=== PATIENT | male | born 1975 | race African-American/Black ===

== ENCOUNTER 2020-03-29 01:27 | Inpatient (IN) | payer SELFPAY ==
[2020-03-29 02:34] LABS: Troponin I 0.012 ng/mL (< 0.028)
[2020-03-29 03:12] VITALS: BMI 29.2
[2020-03-29] MEDS ORDERED: cloNIDine 0.1 MG TAB PO PRN (05:02)
[2020-03-29] MEDS ORDERED: Senokot S 8.6-50 MG TAB PO PRN (05:04)
[2020-03-29] MEDS ORDERED: Calcium Carbonate 500 MG ChewTAB PO PRN (05:04)
[2020-03-29] MEDS ORDERED: Ondansetron ODT 4 MG TAB PO PRN (05:04)
[2020-03-29] MEDS ORDERED: Ondansetron PF 4 MG/2 ML Vial IVP PRN (05:04)
--- NOTE | 2020-03-29 05:12 | HP ---
PRIMARY CARE PHYSICIAN: Ct Hanks MD CHIEF COMPLAINT: Right hip pain. HISTORY OF PRESENT ILLNESS: The patient is a 44-year-old male, who presented to [facility] with right hip pain. The patient had a mechanical fall and landed on his right hip. He presented to the emergency room with significant right hip pain that was moderate to severe in intensity, worse with movement. It was sharp. He was found to have pressured speech along with tangentiality, for which a drug screen was done that was consistent with cocaine and amphetamine. His alcohol level was 15. He was found to have KILLIAN with creatinine of 3.39 with BUN of 27 and CK of 1489. He was started on IV fluids and was transferred to this facility for hospital admission. PAST MEDICAL HISTORY: Epidermoid brain cyst, status post removal in 2013. PAST SURGICAL HISTORY: As discussed above. ALLERGIES: NO KNOWN DRUG ALLERGIES. SOCIAL HISTORY: The patient denies any alcohol or drug use. He is a former smoker. FAMILY HISTORY: Negative for heart disease. REVIEW OF SYSTEMS: Limited due to current mentation. PHYSICAL EXAMINATION: VITAL SIGNS: Temperature 98.3, pulse rate of 108, respirations 22, blood pressure 122/86, and O2 saturation 100% on room air. GENERAL: A 44-year-old male, in no apparent distress. He is intermittently confused. HEENT: Head, atraumatic and normocephalic. Sclerae anicteric. Dry mucous membranes. No oral lesion. NECK: Supple. No JVD. No carotid bruit. LUNGS: Clear to auscultation bilaterally. No wheezing, rales, or rhonchi. HEART: S1 and S2 present. Regular rate and rhythm. No rubs or gallops. ABDOMEN: Soft and nontender. Bowel sounds present. EXTREMITIES: No edema or calf tenderness. NEUROLOGIC: Grossly nonfocal. Moves all 4 extremities. Power was 5/5 in all extremities. PSYCHIATRIC: Alert, awake, and oriented x3 with intermittent confusion. MUSCULOSKELETAL: There is mild right hip pain on deep palpation. The pain is worse on movement. SKIN: Warm and dry. LYMPH NODES: No palpable lymph nodes in the neck. LABORATORY FINDINGS: CBC showed WBC 10.4 with hemoglobin 15.3, hematocrit 49.8, and platelets of 270. Chemistry showed sodium 147, potassium 4.2, chloride 107, bicarb 19, BUN 27, and creatinine 3.39. CK was 1489. Urinalysis showed 7 to 10 wbc's with 1+ bacteria. Urine drug screen as discussed above. IMAGING STUDIES: Hip x-ray by my review showed degenerative changes. IMPRESSION: 1. Toxic metabolic encephalopathy, multifactorial. 2. Acute kidney injury with metabolic acidosis and rhabdomyolysis. 3. Dehydration with hypernatremia. 4. Polysubstance abuse. 5. Alcohol intoxication. 6. History of epidermoid brain cyst, status post extraction in 2013. 7. Polysubstance abuse. PLAN: The patient will be monitored on the telemetry unit. We will continue IV hydration. The patient was extensively counseled on drug cessation. We will recheck labs in 24 hours. We will repeat CK in 24 hours. The patient understands the above plan of care. Job ID: [id number]
[2020-03-29 05:47] LABS: Troponin I 0.011 ng/mL (< 0.028)
[2020-03-29] MEDS: cloNIDine 0.1 MG TAB PO SCH ×3 (05:59→21:46)
[2020-03-29] MEDS: Sodium Chloride 0.9% 1,000 ML IV SCH ×4 (05:59→21:38)
[2020-03-29] MEDS: Famotidine 20 MG TAB PO SCH ×2 (08:21→21:44)
[2020-03-29] MEDS: Multivit, Therapeutic 1 TAB PO SCH (08:21)
[2020-03-29 08:41] LABS: Troponin I Less than 0.010 ng/mL (< 0.028)
[2020-03-29 09:21] LABS: Hemoglobin 14.4 g/dL (14.0-18.0); Mean Corpuscular HGB CONC 31.7 g/dL (32.0-36.0); Mean Corpuscular Hemoglobin 26.9 pg (27.0-31.0); Mean Corpuscular Volume 84.7 fL (78.0-98.0); Mean Platelet Volume 8.4 fL (7.4-10.4); Platelet Count 250 thou/uL (130-400); Red Blood Cell (RBC) Count 5.37 mill/uL (4.70-6.10); White Blood Cell (WBC) Count 9.7 thou/uL (4.8-10.8)
[2020-03-29 09:28] LABS: ALT (SGPT) 23 U/L (8-55); AST (SGOT) 45 U/L (5-34); Albumin 4.2 g/dL (3.5-5.0); Alkaline Phosphatase 56 U/L (40-110); Anion Gap 15 mmol/L (10-20); BUN (Urea Nitrogen) 25 mg/dL (8.9-20.6); Bilirubin, Total 0.5 mg/dL (0.2-1.2); CK (CPK) 2071 U/L (30-200); Calc. Creatinine Clearance 57 mL/min (70-130); Calcium 8.9 mg/dL (7.8-10.44); Carbon Dioxide 23 mmol/L (22-29); Chloride 108 mmol/L (98-107); Estimated GFR-MDRD 39; Globulin 2.8 g/dL (2.4-3.5); Glucose 108 mg/dL (70-105); Potassium 4.1 mmol/L (3.5-5.1); Sodium 142 mmol/L (136-145)
[2020-03-29] MEDS ORDERED: Lorazepam 0.5 MG TAB PO PRN (12:13)
--- NOTE | 2020-03-29 12:14 | PDOC.HOSPP ---
- Subjective Encounter Date: 03/29/20 Encounter Time: 09:30 Subjective: The patient is doing better. Muscle cramps have resolved. Patients arms and legs noted to be jerky in the bed, patient states he is always like that because he gets excited. Last cocaine and amphetamine use was yesterday. The patient later had acute anxiety attack, was hearing voices and saw things crawling on the wall. Patient states he was admitted at psychiatric facility in [place]. He states he was on a high dose of seroquel up to 200 mg but he didn't like how it made him feel so he stopped taking it. He also reports having a brain tumor removed four years ago and is supposed to get folllow up imaging but never did - Objective Vital Signs & Weight: Vital Signs (12 hours) Temp Pulse Resp BP BP Pulse Ox 03/29/20 11:01 98.1 F 98 16 115/86 94 L 03/29/20 07:04 98.4 F 98 22 H 120/95 H 99 03/29/20 03:01 98.3 F 130 H 18 111/68 95 Weight Weight 210 lb I&O: 03/28/20 03/29/20 03/30/20 06:59 06:59 06:59 Intake Total 480 Balance 480 Result Diagrams: 03/29/20 09:06 03/29/20 09:06 Hospitalist ROS - Review of Systems Constitutional: denies: fever, chills - Medication Medications: Active Medications Generic Name Dose Route Start Last Admin Trade Name Freq PRN Reason Stop Dose Admin Clonidine 0.1 mg 03/29/20 06:00 03/29/20 05:59 Catapres PO 0.1 mg Q8HR ONEIDA Administration Famotidine 20 mg 03/29/20 09:00 03/29/20 08:21 Pepcid PO 20 mg BID ONEIDA Administration Sodium Chloride 1,000 mls @ 150 mls/hr 03/29/20 05:15 03/29/20 05:59 Normal Saline 0.9% IV 1,000 mls .[id number] ONEIDA Administration Multivitamins 1 tab 03/29/20 09:00 03/29/20 08:21 Theragran PO 1 tab DAILY ONEIDA Administration Quetiapine Fumarate 12.5 mg 03/29/20 10:36 03/29/20 11:04 Seroquel PO 12.5 mg DAILYPRN PRN Administration Agitation - Exam General Appearance: NAD, awake alert Eye: PERRL, anicteric sclera ENT: normocephalic atraumatic, no oropharyngeal lesions Neck: supple, symmetric, no JVD, no thyromegaly Heart: RRR, no murmur, no gallops, no rubs Respiratory: CTAB, no wheezes, no rales, no ronchi Gastrointestinal: soft, non-tender, non-distended, normal bowel sounds Extremities: no cyanosis, no clubbing, no edema Skin: normal turgor, no lesions, no rashes Neurological: cranial nerve grossly intact, normal sensation to touch, no focal deficits, no new deficit Neurological - other findings: patient anxious and fidgety with legs. Maybe tardive dyskinesia legs? Musculoskeletal: normal tone, normal strength, no muscle wasting Psychiatric - other findings: anxious with hallucinations Hosp A/P - Plan This is 44 year old male who presented with rhabdomyolysis, acute kidney injury #Acute renal failure #Rhabdomyolysis - creatinine improved to 2.0, CK level still > 2000 - will continue with IV fluids - trop less than 3 #History of ANxiety #Unspecified psychiatric disorder - will order seroquel prn for hallucinations - ativan prn for anxiety - consider [facility] consult tomorrow History of brain tumor s/p removal - will repeat CT head Dispo: anticipate one more day DVT prophylaxis: patient is ambulatory Code status: full code
[2020-03-29] MEDS ORDERED: Lorazepam 0.5 MG TAB PO SCH (12:15)
--- NOTE | 2020-03-29 18:03 | CT ---
CT HEAD WITHOUT CONTRAST: 03/29/20 INDICATIONS: History of brain tumor. Comparison made to prior exams. MRI of brain 11/15/14 and 07/13/14. CT brain 07/12/14. Prior studies have revealed an epidermoid tumor in the posterior fossa. The MRI of 11/15 showed posto perative change with resection of the tumor with no evidence of residual tumor or recurrence. FINDINGS: Ventricles have normal size and position. Postoperative defect in the posterior fossa in the midline again noted. No mass effect identified. There is no evidence of hemorrhage or infarct. IMPRESSION: No acute process. Stable findings when compared to MRI of 11/15/14. POS: AGW
[2020-03-29] MEDS: Acetaminophen 325 MG TAB PO PRN (22:04)
[2020-03-30 05:00] LABS: Anion Gap 10 mmol/L (10-20); BUN (Urea Nitrogen) 15 mg/dL (8.9-20.6); CK (CPK) 1768 U/L (30-200); Calc. Creatinine Clearance 130 mL/min (70-130); Calcium 8.2 mg/dL (7.8-10.44); Carbon Dioxide 24 mmol/L (22-29); Chloride 113 mmol/L (98-107); Estimated GFR-MDRD Greater than 90; Glucose 118 mg/dL (70-105); Magnesium 2.2 mg/dL (1.6-2.6); Potassium 3.8 mmol/L (3.5-5.1); Sodium 143 mmol/L (136-145)
[2020-03-30 05:05] LABS: Band 1 % (5-11); Eosinophils 1 % (0-10); Hemoglobin 13.1 g/dL (14.0-18.0); Lymphocytes 48 % (21-51); MDiff Complete? YES; Mean Corpuscular HGB CONC 32.1 g/dL (32.0-36.0); Mean Corpuscular Hemoglobin 27.7 pg (27.0-31.0); Mean Corpuscular Volume 86.2 fL (78.0-98.0); Mean Platelet Volume 8.5 fL (7.4-10.4); Monocytes 6 % (0-10); Neutrophil 40 % (42-75); Platelet Count 197 thou/uL (130-400); Reactive Lymphocytes 4 % (0-10); Red Blood Cell (RBC) Count 4.74 mill/uL (4.70-6.10)
[2020-03-30] MEDS: Sodium Chloride 0.9% 1,000 ML IV SCH ×2 (05:05→13:30)
[2020-03-30] MEDS: cloNIDine 0.1 MG TAB PO SCH ×2 (05:09→13:30)
[2020-03-30] MEDS: Multivit, Therapeutic 1 TAB PO SCH (07:28)
[2020-03-30] MEDS: Famotidine 20 MG TAB PO SCH (07:28)
[2020-03-30 11:24] VITALS: BP 143/75; TEMP 98.4
[2020-03-30] MEDS: Acetaminophen 325 MG TAB PO PRN (11:26)
--- NOTE | 2020-03-30 15:38 | DIS ---
DATE OF ADMISSION: 03/29/2020 DATE OF DISCHARGE: 03/30/2020 DISCHARGE DIAGNOSES: 1. Acute renal failure. 2. Rhabdomyolysis. 3. History of anxiety. 4. Unspecified psychiatric disorder with hallucinations. 5. History of brain tumor, status post removal. 6. Cocaine abuse, methamphetamine abuse, amphetamine abuse. CONSULTATIONS: None. PROCEDURES: None. BRIEF HISTORY OF PRESENT ILLNESS: This is a 44-year-old male with a past medical history of unspecified psychiatric disorder, epidermoid brain cyst, status post removal, who had presented to the emergency room with right hip pain. The patient states that he had a fall and he landed on his right hip. His hip pain was moderate to severe in intensity, worse with movement. The patient was also noted to have pressured speech and had a drug screen that was positive for cocaine, methamphetamine, and amphetamine. His alcohol level is 15. He had an KILLIAN with a creatinine of 3.39. He was started on IV fluids and admitted for further workup. HOSPITAL COURSE: 1. Acute renal failure secondary to rhabdomyolysis from possible cocaine/methamphetamine/amphetamine use: The patient was hydrated with IV fluids and his creatinine improved to 0.99. The patient's CK level improved from 2069 to 1768. He reported adequate urine output. The patient was advised to stop using cocaine/methamphetamine and amphetamine and was seen by [facility] and referred for polysubstance abuse treatment on discharge. 2. Right hip pain: Hip x-ray on 03/29 showed severe right hip osteoarthritis. The patient states that he is in the process of getting hip surgery as an outpatient. He states this pain is chronic. He was able to lift up his right leg on the day of discharge. He is advised to drink excess amounts of water. 3. Anxiety/unspecified psychiatric disorder: The patient had an acute panic attack on 03/29, where he had some auditory hallucinations and seeing things crawling on the wall. He was given Seroquel with improvement in his hallucinations. He was seen by [facility] on the day of discharge. The patient denied any thoughts of hurting himself or others and denied any auditory or visual hallucinations. He was advised to follow up with [facility] as an outpatient and he was prescribed Seroquel as needed for hallucinations. 4. History of brain, tumor status post removal: The patient states that he is due for a repeat neuroimaging study for his brain tumor: He did have a repeat CT head, which showed stable findings. 5. Anemia: Hemoglobin was 13.1 on the day of discharge. This is likely secondary to his IV fluids. This should be repeated with his PCP as an outpatient. DISCHARGE PHYSICAL EXAMINATION: VITAL SIGNS: Temperature 98.4, heart rate 63, respiratory rate 16, O2 saturation 99% on room air, and blood pressure 143/75. GENERAL: The patient is alert, awake, and oriented x3. CVS: Regular rate and rhythm with no murmurs, rubs, or gallops. LUNGS: Clear to auscultation bilaterally. ABDOMEN: Positive bowel sounds. Soft, nontender, and nondistended. EXTREMITIES: The patient does have some mild right hip tenderness. He is able to lift up his right and left leg without difficulty. He is able to ambulate as well. He does not have any edema on his extremities. PERTINENT LABORATORY DATA: CBC on 03/30: Hemoglobin 13.1, hematocrit 40.9. Rest of CBC unremarkable. BMP on 03/30: Creatinine is 0.99, which is improved from 2.24 the day prior. CK level: 1768. Troponin I: Normal at 0.012, 0.011, 0.010. IMAGING DATA: Hip x-ray on 03/29: Severe right hip osteoarthritis. CT brain on 03/29: No acute process. Stable postop defect in the posterior fossa. DISCHARGE CONDITION: Stable. ACTIVITY: As tolerated. DIET: Regular diet. DISCHARGE MEDICATIONS: Seroquel 12.5 mg p.o. b.i.d. p.r.n. for hallucinations. DISCHARGE INSTRUCTIONS: The patient should follow up with his PCP in a week and consider following up with [facility] on discharge. Job ID: [id number] [facility]
== END 2020-03-30 15:15 | disposition home or self-care (01) | DRG 917 ==
LOC: ERS 01:27 → 2NO 01:53 → OBSVTOIN 01:53
PROVIDERS: ADMIT Internal Medicine; ATTEND Internal Medicine
DX: T40.5X1A Poisoning by cocaine, accidental (unintentional), initial encounter (principal); G92 Toxic encephalopathy; N17.9 Acute kidney failure, unspecified; E87.2 Acidosis; M62.82 Rhabdomyolysis; E87.0 Hyperosmolality and hypernatremia; R44.3 Hallucinations, unspecified; E86.0 Dehydration; F19.10 Other psychoactive substance abuse, uncomplicated; F10.129 Alcohol abuse with intoxication, unspecified; M16.11 Unilateral primary osteoarthritis, right hip; Y90.0 Blood alcohol level of less than 20 mg/100 ml; D64.9 Anemia, unspecified; F99 Mental disorder, not otherwise specified; Z71.51 Drug abuse counseling and surveillance of drug abuser
CPT/HCPCS: 36415; 70450; 80048; 80053; 82550; 83735; 84484; 85025; 85027; 99285

== ENCOUNTER 2020-06-30 05:29 | Outpatient (CLI) | payer OTHER ==
[2020-06-30 14:01] LABS: Hemoglobin 14.7 g/dL (14.0-18.0); Mean Corpuscular HGB CONC 32.6 g/dL (32.0-36.0); Mean Corpuscular Hemoglobin 28.2 pg (27.0-31.0); Mean Corpuscular Volume 86.5 fL (78.0-98.0); Mean Platelet Volume 8.9 fL (7.4-10.4); Platelet Count 202 thou/uL (130-400); RBC Distribution Width 13.6 % (11.5-14.5); Red Blood Cell (RBC) Count 5.21 mill/uL (4.70-6.10); White Blood Cell (WBC) Count 5.6 thou/uL (4.8-10.8)
[2020-06-30 14:10] LABS: Anion Gap 11 mmol/L (10-20); BUN (Urea Nitrogen) 11 mg/dL (8.9-20.6); Calc. Creatinine Clearance 0 mL/min (70-130); Calcium 9.2 mg/dL (7.8-10.44); Carbon Dioxide 29 mmol/L (22-29); Chloride 104 mmol/L (98-107); Estimated GFR-MDRD Greater than 90; Glucose 88 mg/dL (70-105); Potassium 4.3 mmol/L (3.5-5.1); Sodium 140 mmol/L (136-145)
[2020-06-30 14:18] LABS: Prothrombin Time 12.7 sec (12.0-14.7)
[2020-06-30 14:23] LABS: Bilirubin Negative (Negative); Blood, Urine Negative (Negative); Clarity Turbid (Clear); Glucose, Urine (Dipstick) Normal (Negative); Ketone, Urine Negative (Negative); Leukocyte Negative Leu/uL (Negative); Nitrite Negative (Negative); Protein, Urine (Dipstick) 10 mg/dL (Neg-Trace); RBC/HPF 0-3 HPF (0-3); Specific Gravity, Urine 1.027 (1.002-1.036); Squamous Epithelial 0-3 HPF (0-3); WBC/HPF 0-3 HPF (0-3); pH, Urine 7.5 (5.0-9.0)
[2020-06-30 14:26] LABS: Bacteria/HPF 1+ HPF (None Seen)
[2020-07-01 14:41] LABS: SARS-CoV-2 MS2 Positive; SARS-CoV-2 N Gene Negative; SARS-CoV-2 S Gene Negative; SARS-CoV-2 by NAA Not Detected (NotDetected); SARS-CoV-2 orf1ab Negative
== END 2020-06-30 05:30 | disposition home or self-care (01) ==
LOC: LABBT 05:29
PROVIDERS: ATTEND Orthopaedic Surgery
DX: Z01.812 Encounter for preprocedural laboratory examination (principal); Z11.59 Encounter for screening for other viral diseases; M87.051 Idiopathic aseptic necrosis of right femur
CPT/HCPCS: 80048; 81001; 85027; 85610; 87081; 87635; U0003

== ENCOUNTER 2020-06-30 12:00 | Inpatient (IN) | payer OTHER ==
[2020-06-29 14:23] VITALS: BMI 29.9
[2020-07-04] MEDS ORDERED: Tranexamic Acid 1,000 MG/10 ML VIAL ONE (06:03)
[2020-07-04] MEDS ORDERED: Sodium Chloride 0.9% 100 ML ONE (06:04)
[2020-07-04] MEDS ORDERED: Vancomycin 1.5 GRAM/300 ML BAG ONE (06:04)
[2020-07-04] MEDS ORDERED: Fentanyl 100 MCG/2 ML VIAL ONE ×5 (06:28→09:39)
[2020-07-04] MEDS ORDERED: Midazolam HCl 2 mg/2 ml Vial ONE (06:28)
[2020-07-04] MEDS ORDERED: traMADol HCl 50 MG TAB PO PRN ×3 (06:56→07:15)
[2020-07-04] MEDS ORDERED: diphenhydrAMINE 25 MG CAP PO PRN ×2 (06:56→07:15)
[2020-07-04] MEDS ORDERED: Promethazine HCl 25 MG/ML VIAL IM PRN ×3 (06:56→09:15)
[2020-07-04] MEDS ORDERED: HYDROcodone/Acetaminophen 10/325 mg Tablet PO PRN ×2 (06:56)
[2020-07-04] MEDS ORDERED: Zolpidem Tartrate 5 MG TAB PO PRN ×2 (06:56→07:15)
[2020-07-04] MEDS ORDERED: Ondansetron PF 4 MG/2 ML Vial IVP PRN ×2 (06:56→07:15)
[2020-07-04] MEDS ORDERED: Acetaminophen 325 MG TAB PO PRN (06:56)
[2020-07-04] MEDS ORDERED: Naloxone HCl 0.4 mg/ml Vial IVP PRN (07:15)
[2020-07-04] MEDS ORDERED: Promethazine HCl 25 MG SUPP PR PRN (07:15)
[2020-07-04] MEDS ORDERED: Hydrocerin (Eucerin) Cream 120 gm Jar TOP PRN (07:15)
[2020-07-04] MEDS ORDERED: diphenhydrAMINE 50 MG/ML VIAL IVP PRN (07:15)
[2020-07-04] MEDS ORDERED: diphenhydrAMINE 50 MG/ML VIAL IM PRN (07:15)
[2020-07-04] MEDS ORDERED: Naloxone HCl 0.4 mg/ml Vial IV PRN (07:15)
[2020-07-04] MEDS: Clindamycin/D5W 900 MG in Premix Bag 1 BAG IVPB SCH ×2 (07:30→12:32)
[2020-07-04] MEDS: Sodium Chloride 0.9% 1,000 ML IV SCH ×2 (08:38→17:15)
[2020-07-04] MEDS ORDERED: Bupivacaine/Epinephrine 0.25% 30 ML VIAL ONE (08:40)
[2020-07-04] MEDS ORDERED: Ondansetron HCl/PF 4 MG/2 ML Vial IVP PRN (09:15)
[2020-07-04] MEDS ORDERED: Promethazine HCl 25 MG/ML VIAL SLOW IVP PRN (09:15)
[2020-07-04] MEDS ORDERED: Naloxone HCl 0.4 mg/ml Vial ONE (10:11)
[2020-07-04] MEDS ORDERED: Ondansetron PF 4 MG/2 ML Vial ONE (10:11)
[2020-07-04] MEDS ORDERED: Glycopyrrolate 0.2 MG/ML 5 ML SYRINGE ONE (10:11)
[2020-07-04] MEDS ORDERED: Rocuronium Bromide 10 MG/ML (10ML VIAL) ONE (10:11)
[2020-07-04] MEDS ORDERED: PROPOFOL 200 MG/20 ML VIAL ONE (10:11)
[2020-07-04] MEDS ORDERED: Ketorolac Tromethamine 30 MG/ML VIAL ONE (10:11)
[2020-07-04] MEDS ORDERED: Dexamethasone 20 MG/5 ML VIAL ONE (10:11)
[2020-07-04] MEDS ORDERED: Lidocaine 1.5% w/Epi 1:200K 30 ML VIAL (Epid Use) ONE (10:12)
--- NOTE | 2020-07-04 11:16 | RAD ---
RIGHT HIP 2 VIEWS: Date: 07/04/2020 HISTORY: Recent postop total hip replacement. COMPARISON: Prior 03/29/2020 study. FINDINGS: Recent right total hip replacement without evidence for dislocation or periprosthetic fracture. IMPRESSION: Unremarkable recent total right hip replacement. POS: OFF
[2020-07-04] MEDS: Ferrous Gluconate 324 MG TAB PO SCH ×2 (11:39→20:55)
[2020-07-04] MEDS: Senokot S 8.6-50 MG TAB PO SCH ×2 (11:39→20:55)
[2020-07-04] MEDS: Aspirin 81 mg Enteric Coated Tablet PO SCH ×2 (11:39→20:55)
[2020-07-04] MEDS: Multivitamin W/ Minerals 1 TAB PO SCH (11:39)
--- NOTE | 2020-07-04 12:10 | OP ---
DATE OF PROCEDURE: 07/04/2020 PREOPERATIVE DIAGNOSIS: End-stage bicompartmental osteoarthritis, right hip. POSTOPERATIVE DIAGNOSIS: End-stage bicompartmental osteoarthritis, right hip. PROCEDURE PERFORMED: Press-fit right total hip arthroplasty. SUPERVISOR ESTIMATOR AND DRAFTER: Melvin Galan PA-C ANESTHESIA: General via endotracheal tube, augmented with indwelling epidural. COMPONENT USED: [facility] [employer] Trident II 52-mm press-fit acetabular shell with a 36-mm 10-degree polyethylene fixed bearing insert, Accolate II size 5 press-fit hip stem with a V40 ceramic 36-mm neutral neck length, standard offset femoral head. ESTIMATED BLOOD LOSS: 150. FINDINGS: End-stage severe degenerative bicompartmental disease, [id number] arthrosis, periarticular osteophyte formation, large serous effusion, hypertrophic synovium, and changes consistent with degenerative osteoarthritis and degenerative bicompartmental disease. DRAINS: None. SPECIMENS: None. COMPLICATIONS: None. INPUT: 900 mL of crystalloid. OUTPUT: 200 mL of clear yellow urine. INDICATIONS FOR PROCEDURE: Mook is a 44-year-old male who has had right hip pain and problem with standing and walking for the last 5 to 7 years. He has failed conservative management and elected to proceed with total hip arthroplasty as definitive treatment of his pain. PROCEDURE IN DETAIL: After informed consent was obtained in the preoperative holding area, the patient was taken to the operative suite. General anesthesia was induced. He was then positioned appropriately in the lateral decubitus with the operative side up and exposed. The appropriate hip was then prepped and draped in usual sterile fashion. The patient received preoperative antibiotics, and prior to incision, a multidisciplinary time-out was called. After this, a longitudinal incision was made directly over the tip of the trochanter, extending 2 to 3 fingerbreadths above the tip of the trochanter by palpation and 2 to 3 fingers below the apex of the trochanter itself. Subcutaneous layers were undermined by Bovie electrocautery. The iliotibial band was encountered and incised sharply and the plane below this was developed bluntly. Charnley retractor was placed to provide visualization. Lateral aspect of the trochanter was inspected and cleared of synovium and the abductors were then identified and reflected off anteriorly using Bovie electrocautery. We then encountered gluteus medius and minimus, these were both reflected anteriorly using an abductor split and preservation technique. Upon identifying the capsule, the physiotherapist's assistant replaced the Charnley retractor to a deeper level under the submuscular layer and above the capsule itself. Then, with assistance from the co-surgeon, a copious anterior capsulectomy was performed and the physiotherapist's assistant was required to externally rotate and flex the hip, providing access to the femoral neck. The physiotherapist's assistant then used the oscillating saw to provide a provisional in situ neck cut. This was then completed and attention was turned to acetabular preparation. Deep curved Hohmann retractors were placed both anteriorly and posteriorly to provide access to the acetabulum, which was well visualized. A complete labrectomy was performed, the fovea was then fully identified and all soft tissue was removed from it so as to identify the outer table of the pelvis. The floor of the fovea was also used as a landmark. The physiotherapist's assistant then performed sequential reaming up to the appropriate size to achieve a 36-mm femoral head. After [id number] ream was completed, the appropriate diameter acetabular permanent cup was then malleted squarely into place with the appropriate version and translation. A polyethylene fixed bearing insert was then malleted into the acetabular cup. Hohmann retractors were removed and attention was then turned to femoral canal preparation. The physiotherapist's assistant provided exposures using a hip flexion and external rotation. The femoral neck box truck washer was then used to remove bone from the posterior aspect of the canal, allowing for the canal finder to be replaced and sequential canal reaming up to the appropriate diameter, where good chatter and fit were found. Sequential broaching was then carried to the appropriate size and the trial construct was stable to flexion and extension as well as rotational stability. The trial neck and head were placed on the broach and we took the patient to a sequence of stability maneuvers to include flexion, extension, external rotation, and full extension as well as hip flexion, internal femoral rotation, and adduction and found the construct to be solid, safe, and without dislocation in either of these planes. Leg lengths were measured and Shuck was checked to be about 2 to 3 mm of Shuck with the capsule. The physiotherapist's assistant then provided dislocation maneuver. All trials were removed and the final femoral stem was then malleted into place. The femoral head was placed and malleted into place. Again, reduction maneuver by the physiotherapist's assistant was performed and all positions of stability checking were also done second time using final implants. Found to be stable. Yennyey was replaced to the IT band. Copious irrigation was carried out in the length of the wound and primary closure of the abductors was accomplished using a combination of a #5 Ethibond and #2 Vicryl in interrupted [id number] stitches. Pulsatile lavage was then carried out again and the IT band was closed using #2 Vicryl as well as a running Quill #2 stitch performed in concert by the surgeon and co-surgeon at the same time. Subcutaneous layer was closed in concert with a running #0 Quill stitch and the subcuticular layer was closed in concert with a running subcuticular Monocryl stitch and the skin was reapproximated with skin cement. Sterile dressing was applied. Procedure was terminated without any complication. He was extubated in the operative suite and taken to recovery room in stable condition. Job ID: [id number]
[2020-07-04] MEDS: Ketorolac Tromethamine 30 MG/ML VIAL IVP SCH ×3 (12:30→23:31)
[2020-07-04] MEDS ORDERED: Clindamycin/D5W 900 MG in Premix Bag 1 BAG IVPB SCH (21:00)
[2020-07-04] MEDS: HYDROcodone/Acetaminophen 5/325 mg Tablet PO PRN (23:31)
[2020-07-04] MEDS: fentaNYL Citrate/PF 500 MCG, Bupivacaine 10 ML in Sodium Chloride 0.9% 80 ML EPIDURAL SCH (23:50)
[2020-07-05] MEDS: Sodium Chloride 0.9% 1,000 ML IV SCH ×2 (03:38→16:50)
[2020-07-05] MEDS: HYDROcodone/Acetaminophen 5/325 mg Tablet PO PRN ×4 (03:41→20:33)
[2020-07-05 05:16] LABS: Hemoglobin 11.5 g/dL (14.0-18.0); Mean Corpuscular HGB CONC 30.8 g/dL (32.0-36.0); Mean Corpuscular Hemoglobin 26.3 pg (27.0-31.0); Mean Corpuscular Volume 85.5 fL (78.0-98.0); Mean Platelet Volume 8.9 fL (7.4-10.4); Platelet Count 164 thou/uL (130-400); RBC Distribution Width 13.2 % (11.5-14.5); Red Blood Cell (RBC) Count 4.36 mill/uL (4.70-6.10); White Blood Cell (WBC) Count 8.6 thou/uL (4.8-10.8)
[2020-07-05] MEDS: Ketorolac Tromethamine 30 MG/ML VIAL IVP SCH ×4 (05:51→23:53)
--- NOTE | 2020-07-05 08:43 | PRG ---
DATE OF SERVICE: 07/05/2020 SUBJECTIVE: Mook is a 44-year-old male postop day 1 from a right total hip arthroplasty. He is doing very well. He has no complaints and he is quite comfortable and happy with postop results. OBJECTIVE: VITAL SIGNS: Temperature 98.3, pulse 70, respiratory rate 16, and blood pressure is 120/81. GENERAL: He is alert and oriented to person, place, time, and situation, responds with appropriate examiner. EXTREMITIES: Incision is clean. No erythema. No malrotation. No shortening. LABORATORY DATA: Hemoglobin and hematocrit 11.5 and 37.3. IMPRESSION: A 44-year-old male postop day 1, right total hip arthroplasty, doing well. PLAN: Continue current care. Probable discharge home tomorrow. Job ID: [id number]
[2020-07-05] MEDS: Aspirin 81 mg Enteric Coated Tablet PO SCH ×2 (09:12→20:29)
[2020-07-05] MEDS: Multivitamin W/ Minerals 1 TAB PO SCH (09:13)
[2020-07-05] MEDS: Ferrous Gluconate 324 MG TAB PO SCH ×2 (09:13→20:28)
[2020-07-05] MEDS: Senokot S 8.6-50 MG TAB PO SCH (09:13)
[2020-07-05] MEDS: fentaNYL Citrate/PF 500 MCG, Bupivacaine 10 ML in Sodium Chloride 0.9% 80 ML EPIDURAL SCH (16:27)
[2020-07-06] MEDS: HYDROcodone/Acetaminophen 5/325 mg Tablet PO PRN ×2 (00:01→09:33)
[2020-07-06] MEDS: Senokot S 8.6-50 MG TAB PO SCH ×2 (00:35→08:03)
[2020-07-06] MEDS: Sodium Chloride 0.9% 1,000 ML IV SCH ×2 (01:58→10:11)
[2020-07-06] MEDS: Ketorolac Tromethamine 30 MG/ML VIAL IVP SCH (05:02)
[2020-07-06] MEDS: Aspirin 81 mg Enteric Coated Tablet PO SCH (08:03)
[2020-07-06] MEDS: Multivitamin W/ Minerals 1 TAB PO SCH (08:04)
[2020-07-06] MEDS: Ferrous Gluconate 324 MG TAB PO SCH (08:04)
[2020-07-06 11:33] VITALS: BP 140/70; TEMP 98.2
== END 2020-07-06 13:55 | disposition home or self-care (01) | DRG 470 ==
LOC: SURG A 07-04 05:41 → SJJU 07-04 11:22
PROVIDERS: ADMIT Orthopaedic Surgery; ATTEND Orthopaedic Surgery
PROC: 0SR904A Replacement of Right Hip Joint with Ceramic on Polyethylene Synthetic Substitute, Uncemented, Open Approach (ICD-10-PCS; principal; 2020-07-04)
DX: M16.11 Unilateral primary osteoarthritis, right hip (principal)
CPT/HCPCS: 36415; 85027; J0690; J1100; J1885; J1956; J2001; J2250; J2310; J2405; J2704; J3010; J3370; J3490